=== PATIENT | female | born 1980 | race Caucasian/White ===

== ENCOUNTER 2020-04-20 19:25 | Emergency (ER) | payer MEDICAID ==
[~2020-04-20] VITALS: Ht 162.6 cm; Wt 106.6 kg
[2020-04-20 19:39] VITALS: BP 156/100
--- NOTE | 2020-04-20 19:45 | NUR ---
PT AMBULATED TO BED 2 WITH STEADY GAIT
--- NOTE | 2020-04-20 19:49 | NUR ---
PT MOVED FROM BED 2 TO BED 4 WITH STEADY GAIT
--- NOTE | 2020-04-20 19:50 | NUR ---
PT 39 Y/O FEMALE BIB SELF FOR C/O HTN X 1 DAY. PT STATES," I WAS CHECKING MY BLOOD PRESSURE AT HOME AND IT SEEMED HIGH TO BE." PT STATES SHE HAS A RECENT DX OF HTN AND BEGAN NEW BP MEDICATIONS X 2 WEEKS AGO. PT CURRENTLY TAKING ALDONET 500MG BID. PT STATES SHE HAS FEELINGS OF DIZZYNESS. NO JUDD OR LURRED VISION. PT ALSO IS 9 WEEKS PREGNENT. DENIES PELVIC OR EPIGASTIRC PAIN. PT PROVIDED UA. PT ADMITS TO LIGHT SPOTTING. PT BP CHECKED: 147/81. . MEDHX: HTN ALLERGIES: NKA
--- NOTE | 2020-04-20 19:58 | NUR ---
ERMD AT BEDSIDE.
[2020-04-20 21:09] VITALS: BP 131/70
--- NOTE | 2020-04-20 21:09 | NUR ---
Patient discharged with v/s stable. Written and verbal after care instructions given and explained. Patient alert, oriented and verbalized understanding of instructions. Ambulatory with steady gait. All questions addressed prior to discharge. ID band removed. Patient advised to follow up with PMD. Rx of LABATALOL given. Patient educated on indication of medication including possible reaction and side effects. Opportunity to ask questions provided and answered.
== END 2020-04-20 21:09 | disposition home or self-care (01) ==
LOC: MED 19:25
DX: O10.911 Unspecified pre-existing hypertension complicating pregnancy, first trimester (principal); O26.851 Spotting complicating pregnancy, first trimester; Z3A.09 9 weeks gestation of pregnancy
CPT/HCPCS: 81002; 81025; 99283